=== PATIENT | female | born 1970 | race Caucasian/White ===

== ENCOUNTER 2019-06-04 09:54 | Day surgery (SDC) | payer OTHER ==
[2019-06-04 10:48] VITALS: BMI 20.7
[2019-06-04] MEDS ORDERED: PROPOFOL 20 ML ONE ×2 (11:17)
[2019-06-04 12:20] VITALS: TEMP 98.1
[2019-06-04 12:22] VITALS: BP 104/57; PULSE 70
== END 2019-06-04 12:20 | disposition home or self-care (01) ==
LOC: FASU-ENDO 09:54
PROVIDERS: ATTEND Internal Medicine Gastroenterology
PROC: 0DJD8ZZ Inspection of Lower Intestinal Tract, Via Natural or Artificial Opening Endoscopic (ICD-10-PCS; principal; 2019-06-04 11:33)
DX: Z12.11 Encounter for screening for malignant neoplasm of colon (principal); K64.1 Second degree hemorrhoids